=== PATIENT | male | born 1965 | race Caucasian/White ===

== ENCOUNTER 2021-10-31 11:19 | Emergency (ER) | payer OTHER ==
--- OUTSIDE RECORDS SUMMARY | 2021-10-31 11:23 | XMS REPORT | Continuity of Care Document ---
:1965 Author Organization [facility] t Address [address] [place] [id number] Care Team Providers Name Role Phone Unavailable Unavailable Unavailable Problems This patient has no known problems. Allergies, Adverse Reactions, Alerts This patient has no known allergies or adverse reactions. Medications This patient has no known medications. Procedures This patient has no known procedures. Results Test Description Test Time Test Comments Results Result Comments Source NT-proBNP 2021-09-20 06:44:08 Test Item Value Reference Range Interpretation Comme nts NT-proBNP (test code = 52 PG/ML SEE BELOW If N T-ProBNP is less than 300 PG/ML, 74978) heart failure i s unlikely for allages. Age............ .....Heart Failure Likely <50 Years...... .....>=450 PG/ML 50-75 Years.........> =900 PG/ML > 75 Years.......... >=1800 PG/ML Methodology: Robert Shavon Michelle ctrochemiluminescense Immunoassay UNL ESS OTHERWISE INDICATED, ALL TESTING PER [facility] [address] [place] [address] [id number] TECHNICAL EDITOR: NAVID ANTHONY M.D. CLIA NUMBER [id number] [place]. [id number] COMPREHENSIVE METABOLIC [id number] 05:40:54 Test Item Value Reference Range Interpretation Comments GLUCOSE (test code = 189 MG/DL 70-99 H 2216) BUN (test code = 16 MG/DL 08-15) CREATININE (test 1.04 MG/DL 0.80-1.40 code = 2214) eGFR (2020 CKD-EPI) 85 ML/MIN/1.73 >60 (test code = 84405) CALC BUN/CREAT (test 15 RATIO 08-23 code = 2235) SODIUM (test code = 140 MEQ/L 764-779 6503) POTASSIUM (test code 4.6 MEQ/L 3.5-5.4 = 222) CHLORIDE (test code 104 MEQ/L 95-107 = 221) CARBON DIOXIDE (test 24 MEQ/L 19-31 code = 2206) CALCIUM (test code = 9.7 MG/DL 8.5-10.5 2208) PROTEIN, TOTAL (test 7.2 G/DL 6.1-8.3 code = 222) ALBUMIN (test code = 4.4 G/DL 3.5-5.2 2200) CALC GLOBULIN (test 2.8 G/DL 1.9-3.7 code = 2240) CALC A/G RATIO (test 1.6 RATIO 1.0-2.6 code = 2234) BILIRUBIN, TOTAL <0.2 MG/DL See_Comment [Automated message] (test code = 220) The syste m which generated this result transmit kellen reference range : <=1.2. The refe rence range was not u sed to interpret th is result as normal/abnormal . ALKALINE PHOSPHATASE 106 U/L 40-121 (test code = 2203) AST (test code = 23 U/L 9-50 2217) ALT (test code = 35 U/L 5-50 2218) LIPID [id number] 05:40:54 Test Item Value Reference Range Interpretation Comments CHOLESTEROL (test 133 MG/DL <200 code = 2210) TRIGLYCERIDES (test 255 MG/DL <150 H code = 2232) HDL CHOLESTEROL (test 44 MG/DL >39 code = 2220) CALC LDL CHOL (test 59 MG/DL <100 NOTE: C ALCULATED LDL code = 2237) IS BASED ON SON-MONTIEL METHOD WHICHINCLUDES ADJUSTABLE TRIGLYCERIDE:VL DL CHOLESTEROL RAT IO.THIS FACTOR VARIES B Y MEASURED TRIGLY CERIDE AND NON-HDLCHOL ESTEROL CONCENTRATIONS WITH INCREASED CALCU LATED LDL SEENIN HIGH ER TRIGLYCERIDE OR LOWER NON-HDL SPECIME NS. FOR MOREINFORMATION , SEE CLIENT ANNOUNCE MENT AT [email or web address] RISK RATIO LDL/HDL 1.34 RATIO <3.55 (test code = 2238) HEMOGLOBIN [id number] 05:36:10 Test Item Value Reference Range Interpretation Comments HEMOGLOBIN A1c (test code = 78582) 6.2 % 4.2-5.6 H CBC W/AUTO DIFF WITH [id number] 04:00:22 Test Item Value Reference Range Interpretation Comments WBC (test code = 7.4 K/UL 3.5-11.0 1001) RBC (test code = 4.65 M/UL 4.50-6.10 1002) HEMOGLOBIN (test code 13.6 G/DL 13.5-17.0 = 1003) HEMATOCRIT (test code 39.3 % 40.0-51.0 L = 1004) MCV (test code = 84.5 fL 80.0-99.0 1005) MCH (test code = 29.2 PG 25.0-33.0 1006) MCHC (test code = 34.6 G/DL 31.0-36.0 1007) RDW (test code = 12.8 % 11.5-15.0 1038) NEUTROPHILS (test 64.2 % code = 1008) LYMPHOCYTES (test 24.2 % code = 1010) MONOCYTES (test code 5.5 % = 1011) EOSINOPHILS (test 4.4 % code = 1012) BASOPHILS (test code 0.8 % = 1013) IMMATURE GRANULOCYTES 0.9 % (test code = 1036) NUCLEATED RBCS (test 0.0 /100 WBC'S See_Comment [Aut omated code = 1065) message] The sy stem which generated this result transmitted reference range : 0.0. The refere nce range was not u sed to interpret th is result as normal/abnormal . PLATELET COUNT (test 326 K/UL 130-400 code = 1015) ABSOLUTE NEUTROPHILS 4.77 K/UL 1.50-7.50 (test code = 1066) ABSOLUTE LYMPHOCYTES 1.80 K/UL 1.00-4.00 (test code = 1067) ABSOLUTE MONOCYTES 0.41 K/UL 0.20-1.00 (test code = 1068) ABSOLUTE EOSINOPHILS 0.33 K/UL 0.00-0.50 (test code = 1040) ABSOLUTE BASOPHILS 0.06 K/UL 0.00-0.20 (test code = 1069) ABS IMMATURE 0.07 K/UL 0.00-0.10 GRANULOCYTES (test code = 1020) ABS NUCLEATED RBCS 0.00 K/UL 0.00-0.11 (test code = 09656)
--- NOTE | 2021-10-31 11:56 | EDPHYS ---
Physician Documentation [facility] Name: Chan Gutierrez Age: 56 yrs Sex: Male : 1965 Arrival Date: 10/31/2021 Time: 11:24 Bed 12 Private MD: ED Physician Baldomero Singh HPI: 10/31 11:38 This 56 yrs old Male presents to ER via Ambulatory with complaints of jl9 Medication Refill. 11:47 This 56 yrs old Male presents to ER via Ambulatory with complaints of jl9 Medication Refill. Patient reports being out for 2 weeks. . Historical: - Allergies: 11:34 Bactrim; jl7 - Home Meds: 11:34 amlodipine 5 mg tab 1 tab once daily [Active]; terazosin 5 mg oral cap 1 cap once daily jl7 [Active]; atorvastatin 40 mg oral tab 1 tab once daily [Active]; furosemide 20 mg Oral tab 1 tab once daily [Active]; duloxetine 60 mg oral CDRS 1 cap once daily [Active]; - PMHx: 11:34 Hypertensive disorder; Hypercholesterolemia; BPH; jl7 - Immunization history:: Client reports receiving the 2nd dose of the Covid vaccine. - Social history:: Smoking status: Patient denies any tobacco usage or history of. Smoking status: Patient reports use of chewing tobacco. ROS: 11:46 Constitutional: Negative for fever, chills, and weight loss, Eyes: Negative for injury, jl9 pain, redness, and discharge, ENT: Negative for injury, pain, and discharge, Neck: Negative for injury, pain, and swelling, Cardiovascular: Negative for chest pain, palpitations, and edema, Respiratory: Negative for shortness of breath, cough, wheezing, and pleuritic chest pain, Abdomen/GI: Negative for abdominal pain, nausea, vomiting, diarrhea, and constipation, Back: Negative for injury and pain, : Negative for injury, bleeding, discharge, and swelling, MS/Extremity: Negative for injury and deformity, Skin: Negative for injury, rash, and discoloration, Neuro: Negative for headache, weakness, numbness, tingling, and seizure, Psych: Negative for depression, anxiety, suicide ideation, homicidal ideation, and hallucinations, Allergy/Immunology: Negative for hives, rash, and allergies, Endocrine: Negative for neck swelling, polydipsia, polyuria, polyphagia, and marked weight changes, Hematologic/Lymphatic: Negative for swollen nodes, abnormal bleeding, and unusual bruising. Exam: 11:47 Constitutional: This is a well developed, well nourished patient who is awake, alert, jl9 and in no acute distress. Head/Face: Normocephalic, atraumatic. Eyes: Pupils equal round and reactive to light, extra-ocular motions intact. Lids and lashes normal. Conjunctiva and sclera are non-icteric and not injected. Cornea within normal limits. Periorbital areas with no swelling, redness, or edema. ENT: Mucous membranes moist. Neck: Trachea midline, no thyromegaly or masses palpated, and no cervical lymphadenopathy. Supple, full range of motion without nuchal rigidity, or vertebral point tenderness. No Meningismus. Chest/axilla: Normal chest wall appearance and motion. Nontender with no deformity. No lesions are appreciated. Cardiovascular: Regular rate and rhythm with a normal S1 and S2. No gallops, murmurs, or rubs. Normal PMI, no JVD. No pulse deficits. Respiratory: Lungs have equal breath sounds bilaterally, clear to auscultation and percussion. No rales, rhonchi or wheezes noted. No increased work of breathing, no retractions or nasal flaring. Abdomen/GI: Soft, non-tender, with normal bowel sounds. No distension or tympany. No guarding or rebound. No evidence of tenderness throughout. Back: No spinal tenderness. No costovertebral tenderness. Full range of motion. Skin: Warm, dry with normal turgor. Normal color with no rashes, no lesions, and no evidence of cellulitis. MS/ Extremity: Pulses equal, no cyanosis. Neurovascular intact. Full, normal range of motion. Neuro: Awake and alert, GCS 15, oriented to person, place, time, and situation. Cranial nerves II-XII grossly intact. Motor strength 5/5 in all extremities. Sensory grossly intact. Cerebellar exam normal. Normal gait. Psych: Awake, alert, with orientation to person, place and time. Behavior, mood, and affect are within normal limits. Vital Signs: 11:32 BP 129 / 106; Pulse 91; Resp 17; Temp 97.7; Pulse Ox 95% ; Weight 113.4 kg; Height 6 jl7 ft. 3 in. (190.50 cm); Pain 8/10; 11:32 Body Mass Index 31.25 (113.40 kg, 190.50 cm) jl7 MDM: 11:37 Patient medically screened. jl9 11:47 Data reviewed: vital signs, nurses notes. jl9 11:55 Counseling: I had a detailed discussion with the patient and/or guardian regarding: the jl9 historical points, exam findings, and any diagnostic results supporting the discharge/admit diagnosis, the need for outpatient follow up, to return to the emergency department if symptoms worsen or persist or if there are any questions or concerns that arise at home. Administered Medications: No medications were administered Disposition: 15:43 Co-signature as Attending Physician, Baldomero Singh MD I agree with the assessment and kdr plan of care. Disposition Summary: 10/31/21 11:56 Discharge Ordered Location: Home jl9 Condition: Stable jl9 Diagnosis - Patient's other noncompliance with medication regimen jl9 Followup: jl9 - With: Private Physician - When: 1 - 2 days - Reason: Recheck today's complaints, Continuance of care, Re-evaluation by your physician Discharge Instructions: - Discharge Summary Sheet jl9 Forms: - Medication Reconciliation Form jl9 - Thank You Letter jl9 - Antibiotic Education jl9 - Prescription Opioid Use jl9 Prescriptions: - atorvastatin 40 mg Oral tablet - take 1 tablet by ORAL route once daily; 30 tablet; Refills: 0, Product jl9 Selection Permitted - duloxetine 30 mg Oral capsule,delayed release(DR/EC) - take 1 capsule by ORAL route once daily; 30 capsule; Refills: 0, Product jl9 Selection Permitted - duloxetine 60 mg Oral capsule,delayed release(DR/EC) - take 1 capsule by ORAL route once daily; 30 capsule; Refills: 0, Product jl9 Selection Permitted - furosemide 20 mg Oral tablet - take 1 tablet by ORAL route once daily; 30 tablet; Refills: 0, Product jl9 Selection Permitted - Terazosin 10 mg Oral Capsule - take 1 capsule by ORAL route once daily at bedtime; 30 capsule; Refills: 0, jl9 Product Selection Permitted Signatures: Baldomero Singh MD MD kdr Leal, Jahala, RN RN jl7 Damion Emerson jl9
--- NOTE | 2021-10-31 11:56 | ER ---
Nurse's Notes [facility] Name: Chan Gutierrez Age: 56 yrs Sex: Male : 1965 Arrival Date: 10/31/2021 Time: 11:24 Bed 12 Private MD: Diagnosis: Patient's other noncompliance with medication regimen Presentation: 10/31 11:32 Chief complaint: Patient states: Need a refill on home medications, have been out x 2 jl7 weeks. Coronavirus screen: At this time, the client does not indicate any symptoms associated with coronavirus-19. Ebola Screen: No symptoms or risks identified at this time. Initial Sepsis Screen: Does the patient meet any 2 criteria? No. Patient's initial sepsis screen is negative. Does the patient have a suspected source of infection? No. Patient's initial sepsis screen is negative. Risk Assessment: Do you want to hurt yourself or someone else? Patient reports no desire to harm self or others. Onset of symptoms was October 31, 2021. Care prior to arrival: None. 11:32 Method Of Arrival: Ambulatory jl7 11:32 Acuity: BRENDAN 5 jl7 Triage Assessment: 11:34 General: Appears in no apparent distress. uncomfortable, Behavior is calm, cooperative, jl7 appropriate for age. Pain: Complains of pain in right elbow Pain currently is 8 out of 10 on a pain scale. Historical: - Allergies: 11:34 Bactrim; jl7 - Home Meds: 11:34 amlodipine 5 mg tab 1 tab once daily [Active]; terazosin 5 mg oral cap 1 cap once daily jl7 [Active]; atorvastatin 40 mg oral tab 1 tab once daily [Active]; furosemide 20 mg Oral tab 1 tab once daily [Active]; duloxetine 60 mg oral CDRS 1 cap once daily [Active]; - PMHx: 11:34 Hypertensive disorder; Hypercholesterolemia; BPH; jl7 - Immunization history:: Client reports receiving the 2nd dose of the Covid vaccine. - Social history:: Smoking status: Patient denies any tobacco usage or history of. Smoking status: Patient reports use of chewing tobacco. Screenin:00 Abuse screen: Denies threats or abuse. Denies injuries from another. Nutritional kb3 screening: No deficits noted. Tuberculosis screening: No symptoms or risk factors identified. Fall Risk None identified. Assessment: 12:00 General: Received care of pt from day shift. Pt is AAO x4, states he has been out of kb3 his home medications x2 weeks and unable to see his PCP due to a busy work schedule. Pt with no complaints. Vital Signs: 11:32 BP 129 / 106; Pulse 91; Resp 17; Temp 97.7; Pulse Ox 95% ; Weight 113.4 kg; Height 6 jl7 ft. 3 in. (190.50 cm); Pain 8/10; 11:32 Body Mass Index 31.25 (113.40 kg, 190.50 cm) jl7 ED Course: 11:24 Patient arrived in ED. rg4 11:27 Damion Emerson is PHCP. jl9 11:27 Baldomero Singh MD is Attending Physician. jl9 11:34 Triage completed. jl7 11:34 Arm band placed on right wrist. jl7 12:00 Patient has correct armband on for positive identification. kb3 12:00 No provider procedures requiring assistance completed. kb3 12:03 Madelyn Pan, CHARLES is Primary Nurse. kb3 12:34 Patient did not have IV access during this emergency room visit. kb3 Administered Medications: No medications were administered Medication: 12:00 VIS not applicable for this client. kb3 Outcome: 11:56 Discharge ordered by . jl9 12:31 Patient left the ED. jl7 12:33 Discharged to home ambulatory. kb3 12:33 Condition: good 12:33 Discharge instructions given to patient, Instructed on discharge instructions, follow up and referral plans. Demonstrated understanding of instructions, follow-up care. Signatures: Juanis Ricks rg4 Victorino Caberra RN RN jl7 Damion Emerson jl9 Madelyn Pan, RN RN kb3 Corrections: (The following items were deleted from the chart) 12:32 12:21 General: Received care of pt from day shift. Pt is AAO x4, states feeling at this kb3 time. Mom reports child with . kb3
[2021-10-31 12:37] VITALS: BP 129/106; TEMP 97.7; O2SAT 95
== END 2021-10-31 12:31 | disposition home or self-care (01) ==
LOC: ER 11:19
DX: Z91.14 Patient's other noncompliance with medication regimen (principal)
CPT/HCPCS: 99281